=== PATIENT | female | born 1980 | race Two or more races ===

== ENCOUNTER 2019-05-14 15:49 | Emergency (ER) | payer SELFPAY ==
[~2019-05-14] VITALS: Ht 165.1 cm; Wt 68.0 kg
--- NOTE | 2019-05-14 16:10 | NUR ---
BIB SELF C/O ON AND OFF ABDOMINAL CRAMPING. 6 WEEKS . PATIENT A/OX4, BREATHING EVEN AND UNLABORED, NO SOB NOTED, NEEDS ATTENDED.
[2019-05-14] MEDS ORDERED: ACETAMINOPHEN ES 500 MG TABLET ONE (16:41)
[2019-05-14 16:49] LABS: BASOPHILS % (AUTO) 0.5 % (0.0-2.0); EOSINOPHILS % (AUTO) 0.4 % (0.0-6.0); HEMATOCRIT 41 % (33-45); HEMOGLOBIN 13.9 g/dL (11.5-14.8); LYMPHOCYTES % (AUTO) 24.1 % (20.0-44.0); MEAN CORPUSCULAR HGB CONC 34 g/dl (31.0-36.0); MEAN CORPUSCULAR VOLUME 94 fL (82-100); MONOCYTES # (AUTO) 0.7 /CMM (0.1-1.30); MONOCYTES % (AUTO) 8.5 % (2.0-12.0); NEUTROPHILS # (AUTO) 5.5 /CMM (1.8-8.9); NEUTROPHILS % (AUTO) 66.5 % (43.0-81.0); PLATELET COUNT (AUTO) 381 /CMM (150-450); RED BLOOD CELL COUNT(AUTO) 4.37 MIL/uL (4.0-5.2); WHITE BLOOD COUNT (AUTO) 8.3 K/uL (4.3-11.0)
[2019-05-14 16:56] LABS: CALCIUM, SERUM 9.5 mg/dL (8.5-10.1); CREATININE 0.6 mg/dL (0.6-1.3); POTASSIUM 4.1 mmol/L (3.5-5.1)
[2019-05-14] MEDS ORDERED: ACETAMINOPHEN ES 500 MG TABLET PO ONE (17:00)
--- NOTE | 2019-05-14 17:00 | NUR ---
us tech at bedside.
[2019-05-14 17:21] LABS: APPEARANCE,URINE Clear (CLEAR); BILIRUBIN,URINE Negative (NEGATIVE); BLOOD, URINE Negative Ery/uL (NEGATIVE); COLOR,URINE Yellow (YELLOW); KETONES,URINE Negative (NEGATIVE); LEUKOCYTE ESTERASE ,URINE Negative (NEGATIVE); NITRITE, URINE Negative (NEGATIVE); PH,URINE 6.5 (5.0-8.0); PROTEIN,URINE Negative (NEGATIVE); UGLUCOSE Negative (NEGATIVE); UROBILINOGEN,URINE 0.2 EU/dL (0.2)
--- NOTE | 2019-05-14 17:36 | NUR ---
RECEIVED A CALL FROM LAB, PATIENT IS NOT A CANDIDATE FOR [facility].
--- NOTE | 2019-05-14 18:35 | NUR ---
Patient discharged to home in stable condition. Written and verbal after care instructions given. Patient verbalizes understanding of instruction.
[2019-05-14 18:36] VITALS: BP 130/61
== END 2019-05-14 18:36 | disposition home or self-care (01) ==
LOC: ER 15:53
DX: O03.9 Complete or unspecified spontaneous abortion without complication (principal); O26.891 Other specified pregnancy related conditions, first trimester; O09.511 Supervision of elderly primigravida, first trimester; O02.81 Inappropriate change in quantitative human chorionic gonadotropin (hCG) in early pregnancy; Z3A.01 Less than 8 weeks gestation of pregnancy; Z60.2 Problems related to living alone
CPT/HCPCS: 36415; 76805-TC; 80048-TC; 81000-TC; 84702-TC; 85025-TC